=== PATIENT | female | born 1945 | race Caucasian/White ===

== ENCOUNTER 2021-01-24 12:10 | Outpatient (CLI) | payer MEDICARE, OTHER | END 2021-01-24 12:11 | disposition home or self-care (01) | LOC: CSHCT 12:10 | PROVIDERS: ATTEND Specialist | DX: R51.9 Headache, unspecified (principal); S09.90XS Unspecified injury of head, sequela | CPT/HCPCS: 70450 ==

== ENCOUNTER 2022-02-14 13:11 | Outpatient (CLI) | payer MEDICARE, OTHER | END 2022-02-14 13:12 | disposition home or self-care (01) | LOC: CSHMAMMO 13:11 | PROVIDERS: ATTEND Specialist | DX: Z12.31 Encounter for screening mammogram for malignant neoplasm of breast (principal); Z91.89 Other specified personal risk factors, not elsewhere classified | CPT/HCPCS: 77063; 77067 ==

== ENCOUNTER 2022-03-20 12:32 | Outpatient (CLI) | payer MEDICARE, OTHER | END 2022-03-20 12:33 | disposition home or self-care (01) | LOC: CSHRAD 12:32 | PROVIDERS: ATTEND Specialist | DX: M45.0 Ankylosing spondylitis of multiple sites in spine (principal); M47.814 Spondylosis without myelopathy or radiculopathy, thoracic region; M47.816 Spondylosis without myelopathy or radiculopathy, lumbar region | CPT/HCPCS: 72072; 72100 ==

== ENCOUNTER 2023-02-18 12:55 | Outpatient (CLI) | payer MEDICARE, OTHER | END 2023-02-18 12:56 | disposition home or self-care (01) | LOC: CSHMAMMO 12:55 | PROVIDERS: ATTEND Specialist | DX: Z12.31 Encounter for screening mammogram for malignant neoplasm of breast (principal); Z91.89 Other specified personal risk factors, not elsewhere classified | CPT/HCPCS: 77063; 77067 ==